=== PATIENT | female | born 1980 | race Caucasian/White ===

== ENCOUNTER 2016-04-02 21:17 | Emergency (ER) | payer OTHER ==
[~2016-04-02] VITALS: Ht 172.7 cm; Wt 63.5 kg
[2016-04-02 21:20] VITALS: BP 116/77
--- NOTE | 2016-04-02 21:57 | ED UPPER/LOWER EXTREMITY COMPL ---
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 PER PT R SHOULDER POPPED BACK IN, BUT PT NOT SURE IF IT'S IN A RIGHT SPOT. HX OF R SHOULDER SUBLUXATION. PT REFUSED PAIN MEDS IN TRIAGE. ICE PACK PROVIDED. SLING APPLIED TO R SHOULDER. : No Patient currently breastfeeds: No Past History Travel History Traveled to [place] past 21 day No Medical History Any Pertinent Medical History? see below for history Surgical History Surgical History: non-contributory Psychosocial History What is your primary language Wolof Tobacco Use: Never used Family History Hx Contributory? No Progress Plan of Care: Orders Procedure Date/time Status XRY-SHOULDER COMPLETE-RIGHT 04/02 2127 Active Departure Departure Condition: Stable Referrals: PATIENT HAS NO PRIMARY CARE DR (PCP/Family) Departure Forms: Customer Survey General Discharge Information Prescriptions: Current Visit Scripts No Known Home Medications
--- NOTE | 2016-04-02 22:09 | ED UPPER/LOWER EXTREMITY COMPL ---
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 PER PT R SHOULDER POPPED BACK IN, BUT PT NOT SURE IF IT'S IN A RIGHT SPOT. HX OF R SHOULDER SUBLUXATION. PT REFUSED PAIN MEDS IN TRIAGE. ICE PACK PROVIDED. SLING APPLIED TO R SHOULDER. Triage Nurses Notes Reviewed? yes : No Patient currently breastfeeds: No HPI: Patient was playing tennis when she overextended for a shot and felt her right shoulder dislocate. Patient has an onset of pain to her right anterior shoulder. The pain radiated down towards her elbow. The pain was constant. After approximately 10 minutes she felt a muscle spasm in her right shoulder and felt like it went back into place. Since then the pain has dramatically decreased and currently it is down to a 2 out of 10. Patient denies any other injury. 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 The pain it was a sharp stabbing pain and currently it is a dull ache. There are no aggravating or mitigating factors for the pain. Patient denies any other injury. Past History Travel History Traveled to [place] past 21 day No Medical History Any Pertinent Medical History? none Surgical History Surgical History: non-contributory Psychosocial History What is your primary language Frisian Tobacco Use: Never used ETOH Use: occasional use Illicit Drug Use: denies illicit drug use Family History Hx Contributory? No Review of Systems Review of Systems Constitutional: Reports: no symptoms. Respiratory: Reports: no symptoms. Cardiovascular: Reports: no symptoms. Gastrointestinal/Abdominal: Reports: see HPI. Musculoskeletal: Reports: see HPI, joint pain. Neurological/Psychological: Reports: no symptoms. Immunological: Reports: no symptoms. Physical Exam Physical Exam General Appearance: well developed/nourished, alert, awake, mild distress Eyes: Bilateral: PERRL, EOMI. Neck: normal inspection, supple, full range of motion, no midline tenderness Cardiovascular/Respiratory: normal breath sounds, normal peripheral pulses, regular rate/rhythm, no respiratory distress Shoulder Right: normal range of motion, normal inspection Elbow Right: normal range of motion, normal inspection Hand Right: normal inspection, normal range of motion Neurologic/Tendon: normal sensation, normal motor functions, normal tendon functions Progress Differential Diagnosis: dislocation, sprain, tendon injury Plan of Care: Orders Procedure Date/time Status XRY-SHOULDER COMPLETE-RIGHT 04/02 2127 Active Diagnostic Imaging: Viewed by Me: Radiology Read. Discussed w/RAD: Radiology Read. Radiology Impression: no acute abnormality, no fracture, no dislocation, no foreign body seen Departure Departure Disposition: HOME OR SELF CARE Condition: Stable Clinical Impression Primary Impression: Right shoulder strain Referrals: THERESA MOORE,[place] PATIENT HAS NO PRIMARY CARE DR (PCP/Family) Additional Instructions: WEAR SLING FOR COMFORT RETURN IF SYMPTOMS WORSEN OR FOR ANY COCNERS Departure Forms: Customer Survey General Discharge Information Prescriptions: Current Visit Scripts No Known Home Medications
--- NOTE | 2016-04-02 22:26 | RADIOLOGY REPORT ---
EXAMINATION: XR SHOULDER, RIGHT CLINICAL INFORMATION: Right shoulder injury. Pain. COMPARISON: None TECHNIQUE: Three views of the right shoulder. FINDINGS: The bones and soft tissues are normal. No fracture. Glenohumeral and acromioclavicular alignment is anatomic with normal joint space. No abnormal soft tissue calcifications. IMPRESSION: Normal right shoulder.
== END 2016-04-02 22:29 ==
LOC: ERH 21:17
DX: S46.911A Strain of unspecified muscle, fascia and tendon at shoulder and upper arm level, right arm, initial encounter (principal); X58.XXXA Exposure to other specified factors, initial encounter; Y93.73 Activity, racquet and hand sports
CPT/HCPCS: 73030-RT